=== PATIENT | female | born 1950 ===

== ENCOUNTER 2022-01-23 05:48 | Day surgery (SDC) | payer OTHER ==
[~2022-01-23] VITALS: Ht 157.5 cm; Wt 69.4 kg
[~2022-01-23 05:48] MED LIST: ALBUTERO IH; GLUMETZA500 MG PO; SINGULAIR10 MG PO; ZYRTEC10 MG PO
== END 2022-01-23 12:10 | disposition home or self-care (01) ==
LOC: CIR.AMB 05:48
PROVIDERS: ATTEND Orthopaedic Surgery
DX: M75.22 Bicipital tendinitis, left shoulder (principal); M75.42 Impingement syndrome of left shoulder; M19.012 Primary osteoarthritis, left shoulder; M65.812 Other synovitis and tenosynovitis, left shoulder; Z20.822 Contact with and (suspected) exposure to COVID-19; E78.5 Hyperlipidemia, unspecified; J45.909 Unspecified asthma, uncomplicated; E11.9 Type 2 diabetes mellitus without complications; Z79.84 Long term (current) use of oral hypoglycemic drugs